=== PATIENT | male | born 1985 | race Hispanic/Latino ===

== ENCOUNTER 2025-10-02 18:25 | Emergency (ER) | payer OTHER, SELFPAY ==
[2025-10-02] MEDS ORDERED: Ketorolac Tromethamine 30 MG (1 mL) VIAL ONE (20:38)
== END 2025-10-02 20:40 | disposition home or self-care (01) ==
LOC: CSHERS 18:25
DX: M19.011 Primary osteoarthritis, right shoulder (principal); M25.411 Effusion, right shoulder; X50.0XXA Overexertion from strenuous movement or load, initial encounter
CPT/HCPCS: 93005; 96372; 99283; J1885; J2919